=== PATIENT | male | born 1985 | race African-American/Black ===

== ENCOUNTER 2021-03-07 09:09 | Outpatient (CLI) | payer OTHER | END 2021-03-07 09:10 | disposition home or self-care (01) | LOC: DI 09:09 | PROVIDERS: ATTEND Internal Medicine | DX: R55 Syncope and collapse (principal); R00.1 Bradycardia, unspecified; I51.7 Cardiomegaly | CPT/HCPCS: 93306 ==

== ENCOUNTER 2021-07-02 19:32 | Outpatient (CLI) | payer OTHER | END 2021-07-02 19:33 | disposition home or self-care (01) | LOC: SC 19:32 | PROVIDERS: ATTEND Internal Medicine Pulmonary Disease | DX: R53.1 Weakness (principal) | CPT/HCPCS: 95810 ==

== ENCOUNTER 2021-07-03 07:26 | Outpatient (CLI) | payer OTHER | END 2021-07-03 07:27 | disposition home or self-care (01) | LOC: SC 07:26 | PROVIDERS: ATTEND Internal Medicine Pulmonary Disease | DX: G47.419 Narcolepsy without cataplexy (principal); G47.52 REM sleep behavior disorder | CPT/HCPCS: 95805 ==

== ENCOUNTER 2021-07-03 09:25 | Outpatient (CLI) | payer OTHER ==
[2021-07-03 13:44] LABS: MUDS CUTOFF CONCENTRATIONS CUTOFF CONC BELOW:
[2021-07-03 14:11] LABS: AMPHETAMINE SCREEN,URINE NEGATIVE (NEGATIVE); BARBITURATE SCREEN,UR NEGATIVE (NEGATIVE); BENZODIAZEPINES SCREEN, URINE NEGATIVE (NEGATIVE); COCAINE SCREEN URINE NEGATIVE (NEGATIVE); METHADONE SCREEN, URINE NEGATIVE (NEGATIVE); METHAMPHETAMINES SCREEN, URINE NEGATIVE (NEGATIVE); OPIATE SCREEN, URINE NEGATIVE (NEGATIVE); OXYCODONE SCREEN, URINE NEGATIVE (NEGATIVE); PROPOXYPHENE SCREEN, URINE NEGATIVE (NEGATIVE); THC CANNABINOID SCREEN, URINE POSITIVE (NEGATIVE); TRICYCLIC ANTIDEPRESSANT,URINE NEGATIVE (NEGATIVE)
== END 2021-07-03 23:59 | disposition home or self-care (01) ==
LOC: LAB 09:25
PROVIDERS: ATTEND Nurse Practitioner Family
DX: G47.10 Hypersomnia, unspecified (principal); R53.83 Other fatigue; G47.8 Other sleep disorders; E66.3 Overweight; G47.50 Parasomnia, unspecified; R06.83 Snoring
CPT/HCPCS: 80306

== ENCOUNTER 2021-07-03 12:21 | Emergency (ER) | payer OTHER ==
[2021-07-03 12:31] VITALS: BP 123/77
--- NOTE | 2021-07-03 14:04 | ED Physician Documentation ---
History of Present Illness - Stated complaint Stated Complaint: WEAKNESS - Chief complaint Chief Complaint: Neuro - History obtained from History obtained from: Patient - History of Present Illness Timing: Today Pain level max: 0 Pain level now: 0 - Additonal information Additional information: Patient is a 36-year-old male that was sent over from the sleep center today for unclear reason. Patient states that he is being worked up for narcolepsy. He states that he was doing a sleep study today when he woke up and had an episode of sleep paralysis. He states this occurs frequently to him. He states that the radio/tv technician at the sleep center said he was going to call an ambulance and sent him here. The patient ended up coming in with his . He does not know why he is here. The sleep clinic did not send any information with the patient or call about the patient. I attempted to contact the sleep clinic at 12:48 PM, however they are on lunch and no way to get a hold of them. I recontacted the sleep clinic at 1:20 PM. No answer. Recontacted at 1:30 PM the sleep clinic tried to transfer me to the radio/tv technician, but I was sent to [facility]. Recontacted at 1:45 PM. This time they stated they were unsure why the patient was sent here and I was told to call their medical lab assistant. I called and left him a message. No callback received. Recontacted at [address] Caraballo states that the sleep center staff was concerned because the patient woke up confused when they woke him up out of REM sleep. No abnormalities on EEG. No abnormalities on the sleep study that he is aware of. The patient is fully asymptomatic here. Review of Systems Ten Systems: 10 systems reviewed and negative Constitutional: denies: Fever, Chills Ears: denies: Ear pain Nose: denies: Rhinorrhea / runny nose, Congestion Cardiac: denies: Chest pain / pressure, Palpitations Respiratory: denies: Dyspnea, Cough GI: denies: Abdominal Pain, Nausea, Vomiting, Diarrhea Skin: denies: Rash Musculoskeletal: denies: Neck pain, Back pain Neurologic: denies: Focal weakness, Numbness, Headache, Head injury, LOC PD PAST MEDICAL HISTORY - Past Medical History Past Medical History: Yes Neuro: Other (sleep paralysis) - Allergies Allergies/Adverse Reactions: Allergies Allergy/AdvReac Type Severity Reaction Status Date / Time No Known Drug Allergies Allergy Verified 07/03/21 12:27 PD ED PE NORMAL - Vitals Vital signs reviewed: Yes - General General: Alert and oriented X 3, No acute distress - HEENT HEENT: Moist mucous membranes - Neck Neck: Supple, no meningeal sign - Cardiac Cardiac: RRR - Respiratory Respiratory: No respiratory distress, Clear bilaterally - Abdomen Abdomen: Soft, Non tender, Non distended - Derm Derm: Warm and dry - Neuro Neuro: Alert and oriented X 3, autopsy pathologist 2-12 intact, No motor deficit, No sensory deficit, Normal speech Eye Opening: Spontaneous Motor: Obeys Commands Verbal: Oriented GCS Score: 15 - Psych Psych: Normal mood, Normal affect Results - Vitals Vitals: Vital Signs - 24 hr 07/03/21 12:27 Temperature 36.5 C Heart Rate 60 Respiratory 16 Rate Blood Pressure 123/77 O2 Saturation 99 Oxygen O2 Source Room air PD MEDICAL DECISION MAKING - ED course Complexity details: considered differential, d/w patient, d/w business consultant ED course: Patient with what appeared to be an episode of sleep paralysis the sleep clinic today. Unclear why he was sent to the emergency department. At the sleep clinic staff as well as the sleep clinic physician did not seem clear on why he was actually sent here. There is no indication for emergent neuroimaging. There are no focal neurological deficits. No confusion. Patient is alert and oriented. Appropriate. GCS 15. We will have the patient follow-up with his doctor for further care. No emergency medical condition at this time This document was made in part using voice recognition software. While efforts are made to proofread this document, sound alike and grammatical errors may occur. Departure - Departure Disposition: 01 Home, Self Care Clinical Impression: Sleep paralysis Condition: Good Instructions: Narcolepsy Follow-Up: Adarsh Joseph MD [Primary Care Provider] - Within 1 week Comments: Please follow up with your doctor for further care. Return if you worsen. Discharge Date/Time: 07/03/21 14:15
[2021-07-03] MEDS ORDERED: DEXTROSE 10% 250 ML IV ONE (18:14)
== END 2021-07-03 14:15 | disposition home or self-care (01) ==
LOC: ED 12:21
DX: G47.53 Recurrent isolated sleep paralysis (principal); G47.10 Hypersomnia, unspecified; R53.83 Other fatigue; G47.8 Other sleep disorders; E66.3 Overweight; G47.50 Parasomnia, unspecified; R06.83 Snoring
CPT/HCPCS: 80306; 99281; 99283

== ENCOUNTER 2021-07-07 13:54 | Outpatient (CLI) | payer OTHER ==
[2021-07-07 19:53] VITALS: BP 129/76
--- NOTE | 2021-07-07 19:53 | SLEEP CARE CONSULTATION ---
Information from patient questionnaire entered by Segundo Le MA. I have reviewed and concur with the information entered by Segundo Le MA. This document represents the service I personally performed and the decisions made by me, Tatyana Bartlett MD, [facility]. History of Present Illness Service Date and Time: 07/07/2021 1354 Initial [place] Sleepiness Scale score: 19 (2020) Current [place] Sleepiness Scale score: 20 (2021) Additional HPI information: HPI: Mr. Cutler returned for follow up of the sleep study he had last week. The polysomnography was normal without sleep disrupting conditions. Both the sleep efficiency and sleep architecture were normal. REM latency was 70 minutes. His multiple sleep latency test (MSLT) was abnormal for very short mean sleep latency and the presence of sleep onset REM period on 2 naps. The MSLT was terminated prematurely after the second nap because he became confused. Urine toxscreen was positive for marijuana. The patient was informed of these findings. I explained to him that he most likely has narcolepsy. He informs me that his brother was just diagnosed with the condition. He reports rare cataplexy when he gets excited. He also reports sleep paralysis, one during the MSLT. Sleep Study - Results Type of Sleep Study: Polysomnography (F/U POLY, MSLT,) Prior sleep studies: No Allergies and Home Medications Known drug allergies: No Drug allergies reviewed: Yes Home medication list reviewed: Yes Allergy and home medication list: Allergies No Known Drug Allergies Allergy (Verified 07/03/21 12:27) Review of Systems Review of systems same as previous: Yes Physical Exam Vital signs obtained and entered by: Cortez LE CMA [facility] Blood Pressure: 129/76 (RIGHT, PULSE 58, RESP 16,) Heart Rate: 60 O2 Saturation: 96 (PAPER MASK) Height: 5 ft 11 in Weight: 205 lb (CLOTHES) Body Mass Index: 28.5 BMI Classification: Overweight Impression and Plan IMPRESSION: 1. Narcolepsy with cataplexy, as demonstrated by very short mean sleep latency and 2 out of 2 naps with sleep onset REM period. He reports cataplexy when he is excited. He also has sleep paralysis. I will first treat him with modafinil 100 200 mg in the morning. Cataplexy may require additional treatment. 2. 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 This has not caused any injury. 3. Confusional arousals, a.k.a. sleep drunkenness. I gave him a pamphlet on the condition. Inside, it goes over how to safe-proof the sleep environment. PLAN: 1. Prescription made for modafinil 100 200 mg in the morning as needed for excessive daytime sleepiness. 2. Be very careful with driving. Long distance driving is discouraged. 3. Return in one month for follow up. I will assess his response to the medication at that time. Prescriptions: Other (modafinil) Visit Type: In Office Time Spent with Patient (minutes): 15 Provider Statement: I spent 100% of the Face to Face Visit with the patient with greater than 50% spent counseling the patient and coordination of care.
== END 2021-07-07 13:55 | disposition home or self-care (01) ==
LOC: SC 13:54
PROVIDERS: ATTEND Internal Medicine Pulmonary Disease
DX: G47.411 Narcolepsy with cataplexy (principal); G47.52 REM sleep behavior disorder; F51.9 Sleep disorder not due to a substance or known physiological condition, unspecified
CPT/HCPCS: 99212

== ENCOUNTER 2022-11-09 08:45 | Outpatient (CLI) | payer OTHER | END 2022-11-09 09:00 | disposition home or self-care (01) | LOC: LAB.N 08:45 | PROVIDERS: ATTEND Family Medicine | DX: R07.89 Other chest pain (principal) | CPT/HCPCS: 36415; 84484; 85651 ==